=== PATIENT | female | born 1955 | race American Indian/Alaskan Native ===

== ENCOUNTER 2021-11-16 11:33 | Day surgery (SDC) | payer BC ==
[~2021-11-16 11:33] MED LIST: ACETAMINOPHEN 500 MG TAB PO SCH; CELECOXIB 200 MG CAP PO NR; GABAPENTIN 300 MG CAP PO NR; LACTATED RINGERS 1,000 ML IV SCH; MIDAZOLAM 2 MG/2 ML INJ IV NR
[2021-11-16] MEDS ORDERED: ONDANSETRON 4 MG/2 ML INJ IV PRN (12:51)
[2021-11-16] MEDS ORDERED: HYDROmorphone 0.5 MG/0.5 ML INJ IV PRN (12:51)
[2021-11-16] MEDS ORDERED: oxyCODONE /ACETAMINOPHEN 5-325MG TAB PO PRN (12:51)
--- NOTE | 2021-11-16 12:52 | Anesthesia Day of Surgery ---
Anesthesia Day of Surgery - Day of Surgery Patient Examined: Yes Patient H&P Reviewed: Yes Patient is NPO: Yes
--- NOTE | 2021-11-16 12:52 | Anesthesia Consultation ---
Anesthesia Consult and Med Hx Date of service: 11/16/21 - Airway Anesthetic Teeth Evaluation: Good ROM Head & Neck: Adequate Mental/Hyoid Distance: Adequate Mallampati Class: Class I Intubation Access Assessment: Good - Pre-Operative Health Status ASA Pre-Surgery Classification: ASA2 Proposed Anesthetic Plan: General - Pulmonary Hx Smoking: No Hx Respiratory Symptoms: No - Cardiovascular System Hx Hypertension: Yes Hx Heart Attack/AMI: No Hx Percutaneous Transluminal Coronary Angioplasty (PTCA): No Hx Cardia Arrhythmia: No - Central Nervous System CVA: No - Endocrine Hx Renal Disease: No Hx Liver Disease: No Hx Non-Insulin Dependent Diabetes: No (pre-DM, no meds) Hx Thyroid Disease: No - Additional Comments Anesthesia Medical History Comments: No hx anesthetic complications.
[2021-11-16] MEDS ORDERED: ceFAZolin/Water 2 GM/20 ML 2 GM/20 ML SYRINGE IV ONE (12:54)
[2021-11-16] MEDS ORDERED: HYDROmorphone 1 MG/1 ML INJ ONE (13:41)
[2021-11-16] MEDS ORDERED: propofoL 200 MG/20 ML VIAL IV ONE (13:41)
[2021-11-16] MEDS ORDERED: BUPIVACAINE/PF (0.25%) 2.5 MG/ML 30 ML VIAL INFILTRATI ONE ×2 (13:44→15:24)
[2021-11-16] MEDS ORDERED: ceFAZolin/STERILE WATER 2 GM/20 ML SYRINGE IV SCH (14:00)
[2021-11-16] MEDS ORDERED: ONDANSETRON 4 MG/2 ML INJ ONE (15:00)
[2021-11-16] MEDS ORDERED: KETOROLAC 30 MG/1 ML INJ ONE (15:00)
--- NOTE | 2021-11-16 16:05 | XRay Report ---
XR finger(s) 2+V LT Technique: Intraoperative fluoroscopic guidance was provided. Fluoroscopy time: 2.3 minutes. Fluoroscopy images: 2. Findings/Impression: Intraoperative fluoroscopic guidance for internal fixation/fusion of left fifth digit. Please see procedure report for further details. Signer Name: Darío Astudillo MD Signed: 11/16/2021 4:01 PM Workstation Name: [id number]
[2021-11-16 18:17] VITALS: BP 123/74
== END 2021-11-16 17:00 | disposition home or self-care (01) ==
LOC: OR 11:33
PROVIDERS: ATTEND Orthopaedic Surgery Hand Surgery
DX: M20.012 Mallet finger of left finger(s) (principal); I10 Essential (primary) hypertension; E11.9 Type 2 diabetes mellitus without complications; Z90.49 Acquired absence of other specified parts of digestive tract; Z87.442 Personal history of urinary calculi; Z79.899 Other long term (current) drug therapy; Z72.89 Other problems related to lifestyle; Z98.890 Other specified postprocedural states
CPT/HCPCS: 26445; 26860; 73140; 82962; C1713; J0690; J1170; J1885; J2250; J2405; J2704; J3490; J7120